=== PATIENT | male | born 1995 | race Caucasian/White ===

== ENCOUNTER 2017-09-03 13:33 | Emergency (ER) | payer OTHER ==
[2017-09-03] MEDS ORDERED: SODIUM CHLORIDE 0.9% 1,000 ML IV STA ×2 (14:18→14:23)
[2017-09-03] MEDS ORDERED: LORazepam 2 MG/ML INJ IV STA (14:33)
--- NOTE | 2017-09-03 14:39 | ED ---
Arrhythmia/Palpitations HPI - General Chief Complaint: Arrhythmia/Palpitations Stated Complaint: Chest Pain/Diff Breathing Time Seen by Provider: 09/03/17 14:04 Source: patient Mode of arrival: wheelchair Limitations: no limitations - History of Present Illness Initial Comments: Patient with history of hypothyroidism on levothyroxine, presents with palpitations. States symptoms started while at work today, states he was on his back in a closed tight space spraying for mold when his heart began racing. Symptoms lasted for a few minutes. Patient states the resolved, however they returned while driving to the hospital, but then resolved upon arrival to the hospital. Patient states associated with shortness of breath, "tightness" in his chest. Patient states he had a history of multiple syncopal episodes, the last one occurring 4 years ago, states she was seen by a shear setter and had a thorough workup. States he had a 17-year-old cousin who of a "enlarged heart", but he states "the shear setter worked me up for that". Patient denies recent illness, fevers, chills, nausea, vomiting, changes in appetite, changes in medication, dehydration, syncope, lightheadedness, changes in urination, drug use, recent alcohol use, stimulant use, anxiety, stress. Patient's father bedside assist with history. MD Complaint: "heart racing", palpitations - Related Data Home Medications Medication Instructions Recorded Confirmed Levothyroxine Sodium [Synthroid] 50 mcg PO QAM 07/19/14 09/03/17 Allergies Allergy/AdvReac Type Severity Reaction Status Date / Time Sulfa (Sulfonamide Allergy Rash/Hives Verified 09/03/17 14:06 Antibiotics) Review of Systems ROS Statement: Those systems with pertinent positive or pertinent negative responses have been documented in the HPI. ROS Other: All systems not noted in ROS Statement are negative. Constitutional: Denies: fever, chills, weakness Eyes: Denies: vision change ENT: Denies: throat pain, congestion Respiratory: Reports: dyspnea. Denies: cough, wheezes, stridor Cardiovascular: Reports: palpitations. Denies: chest pain, dyspnea on exertion , orthopnea, edema, syncope Gastrointestinal: Denies: abdominal pain, nausea, vomiting, diarrhea, constipation Genitourinary: Denies: urgency, dysuria, frequency, hematuria Musculoskeletal: Denies: back pain Skin: Denies: rash Neurological: Denies: headache, weakness, numbness, paresthesias, confusion Psychiatric: Denies: anxiety Past Medical History Past Medical History: Syncope, Thyroid Disorder Additional Past Medical History / Comment(s): SEE KRISHEN'S H&P, ACNE History of Any Multi-Drug Resistant Organisms: None Reported Past Surgical History: No Surgical Hx Reported Additional Past Anesthesia/Blood Transfusion Reaction / Comment(s): NEVER HAS HAD ANESTHESIA Past Psychological History: No Psychological Hx Reported Smoking Status: Never smoker Past Alcohol Use History: Rare Past Drug Use History: None Reported General Exam - General Exam Comments Initial Comments: Patient sitting up on bed. Appears mildly anxious. Conversing normally. Pleasant. Well-appearing. Limitations: no limitations General appearance: alert, anxious Head exam: Present: atraumatic, normocephalic Eye exam: Present: normal appearance, PERRL, EOMI ENT exam: Present: mucous membranes moist, normal external ear exam Neck exam: Present: normal inspection. Absent: thyromegaly Respiratory exam: Present: normal lung sounds bilaterally. Absent: respiratory distress, wheezes, rales, rhonchi, stridor, accessory muscle use Cardiovascular Exam: Present: normal rhythm, tachycardia. Absent: systolic murmur, diastolic murmur GI/Abdominal exam: Present: soft. Absent: distended, tenderness, guarding, rebound, rigid Extremities exam: Present: normal inspection Neurological exam: Present: alert, oriented X3. Absent: altered Psychiatric exam: Present: anxious Skin exam: Present: warm, dry, intact, normal color. Absent: rash Course Vital Signs 09/03/17 13:47 Temperature 97.2 F L Pulse Rate 125 H Respiratory 20 Rate Blood Pressure 138/69 O2 Sat by Pulse 100 Oximetry Medical Decision Making - Medical Decision Making HR 125. Patient appears mildly anxious. Will give IV fluids and 0.5 mg of Ativan. EKG: HR 103, Sinus rhythm, signs of LVH. Electrolytes normal. D-dimer negative. Troponin negative. UDS and urinalysis negative. TSH within normal limits. Patient reassessed, states he is feeling much better, "I feel much more relaxed ". Heart rate improved to 94. Patient father updated without results. They feel comfortable going home at this time. Discussed with patient father given signs of LVH on EKG, and family history of early cardiac , patient needs to follow-up with his shear setter Dr. Hanson this week. Patient is to avoid stimulant use, stressors, strenuous physical exertion until cleared by cardiology. The patient father understand and agree. AND answered. We'll discharge home. Patient advised to return to ED immediately if he experiences any lightheadedness, syncope, chest pains or any other new or worsening symptoms. - Lab Data Result diagrams: 09/03/17 14:39 09/03/17 14:39 Lab Results 09/03/17 09/03/17 09/03/17 Range/Units 14:39 14:39 14:39 WBC 5.1 (3.8-10.6) k/uL RBC 4.76 (4.30-5.90) m/uL Hgb 15.3 (13.0-17.5) gm/dL Hct 46.6 (39.0-53.0) % MCV 98.0 (80.0-100.0) fL MCH 32.1 (25.0-35.0) pg MCHC 32.7 (31.0-37.0) g/dL RDW 13.0 (11.5-15.5) % Plt Count 243 (150-450) k/uL Neutrophils % 66 % Lymphocytes % 21 % Monocytes % 10 % Eosinophils % 1 % Basophils % 0 % Neutrophils # 3.3 (1.3-7.7) k/uL Lymphocytes # 1.1 (1.0-4.8) k/uL Monocytes # 0.5 (0-1.0) k/uL Eosinophils # 0.0 (0-0.7) k/uL Basophils # 0.0 (0-0.2) k/uL D-Dimer (<0.60) mg/L FEU Sodium (137-145) mmol/L Potassium (3.5-5.1) mmol/L Chloride (98-107) mmol/L Carbon Dioxide (22-30) mmol/L Anion Gap mmol/L BUN (9-20) mg/dL Creatinine (0.66-1.25) mg/dL Est GFR (MDRD) Af Amer (>60 ml/min/1.73 sqM) Est GFR (MDRD) Non-Af (>60 ml/min/1.73 sqM) Glucose (74-99) mg/dL Calcium (8.4-10.2) mg/dL Magnesium 1.9 (1.6-2.3) mg/dL Troponin I <0.012 (0.000-0.034) ng/mL TSH 1.370 (0.465-4.680) mIU/L Urine Color Urine Appearance (Clear) Urine pH (5.0-8.0) Ur Specific [place] (1.001-1.035) Urine Protein (Negative) Urine Glucose (UA) (Negative) Urine Ketones (Negative) Urine Blood (Negative) Urine Nitrite (Negative) Urine Bilirubin (Negative) Urine Urobilinogen (<2.0) mg/dL Ur Leukocyte Esterase (Negative) Urine Opiates Screen (NotDetected) Ur Oxycodone Screen (NotDetected) Urine Methadone Screen (NotDetected) Ur Propoxyphene Screen (NotDetected) Ur Barbiturates Screen (NotDetected) U Tricyclic Antidepress (NotDetected) Ur Phencyclidine Scrn (NotDetected) Ur Amphetamines Screen (NotDetected) U Methamphetamines Scrn (NotDetected) U Benzodiazepines Scrn (NotDetected) Urine Cocaine Screen (NotDetected) U Marijuana (THC) Screen (NotDetected) 09/03/17 09/03/17 09/03/17 Range/Units 14:39 14:39 14:39 WBC (3.8-10.6) k/uL RBC (4.30-5.90) m/uL Hgb (13.0-17.5) gm/dL Hct (39.0-53.0) % MCV (80.0-100.0) fL MCH (25.0-35.0) pg MCHC (31.0-37.0) g/dL RDW (11.5-15.5) % Plt Count (150-450) k/uL Neutrophils % % Lymphocytes % % Monocytes % % Eosinophils % % Basophils % % Neutrophils # (1.3-7.7) k/uL Lymphocytes # (1.0-4.8) k/uL Monocytes # (0-1.0) k/uL Eosinophils # (0-0.7) k/uL Basophils # (0-0.2) k/uL D-Dimer <0.17 (<0.60) mg/L FEU Sodium 136 L (137-145) mmol/L Potassium 3.8 (3.5-5.1) mmol/L Chloride 102 (98-107) mmol/L Carbon Dioxide 23 (22-30) mmol/L Anion Gap 11 mmol/L BUN 14 (9-20) mg/dL Creatinine 0.92 (0.66-1.25) mg/dL Est GFR (MDRD) Af Amer >60 (>60 ml/min/1.73 sqM) Est GFR (MDRD) Non-Af >60 (>60 ml/min/1.73 sqM) Glucose 121 H (74-99) mg/dL Calcium 9.5 (8.4-10.2) mg/dL Magnesium (1.6-2.3) mg/dL Troponin I (0.000-0.034) ng/mL TSH (0.465-4.680) mIU/L Urine Color Colorless Urine Appearance Clear (Clear) Urine pH 7.5 (5.0-8.0) Ur Specific [place] 1.004 (1.001-1.035) Urine Protein Negative (Negative) Urine Glucose (UA) Negative (Negative) Urine Ketones Negative (Negative) Urine Blood Negative (Negative) Urine Nitrite Negative (Negative) Urine Bilirubin Negative (Negative) Urine Urobilinogen <2.0 (<2.0) mg/dL Ur Leukocyte Esterase Negative (Negative) Urine Opiates Screen Not Detected (NotDetected) Ur Oxycodone Screen Not Detected (NotDetected) Urine Methadone Screen Not Detected (NotDetected) Ur Propoxyphene Screen Not Detected (NotDetected) Ur Barbiturates Screen Not Detected (NotDetected) U Tricyclic Antidepress Not Detected (NotDetected) Ur Phencyclidine Scrn Not Detected (NotDetected) Ur Amphetamines Screen Not Detected (NotDetected) U Methamphetamines Scrn Not Detected (NotDetected) U Benzodiazepines Scrn Not Detected (NotDetected) Urine Cocaine Screen Not Detected (NotDetected) U Marijuana (THC) Screen Not Detected (NotDetected) Disposition Clinical Impression: Palpitations Disposition: HOME SELF-CARE Condition: Good Instructions: Palpitations (ED) Additional Instructions: Make appointment with your shear setter Dr. Hanson this week. Avoid stress, stimulants, strenuous physical exertion until cleared by shear setter. Referrals: Luis Wilcox MD [Primary Care Provider] - 1-2 days
[2017-09-03 14:54] LABS: Appearance,Urine Clear (Clear); Bilirubin,Urine Negative (Negative); Glucose,Urine (UA) Negative (Negative); Ketones,Urine Negative (Negative); Leukocyte Esterase,Urine Negative (Negative); Nitrite,Urine Negative (Negative); PH, Urine 7.5 (5.0-8.0); Protein,Urine Negative (Negative); Specific Gravity,Urine 1.004 (1.001-1.035); UA Billing (MACRO vs. MICRO) CHEM; Urobilinogen,Urine <2.0 mg/dL (<2.0)
[2017-09-03 14:56] LABS: Basophils % (A) 0 %; CH 32.6; CHCM 33.4; Eosinophils % (A) 1 %; HCT 46.6 % (39.0-53.0); HDW 2.31; HGB 15.3 gm/dL (13.0-17.5); Luc # (Auto) 0.12; Luc % (Auto) 2; Lymphocytes # (A) 1.1 k/uL (1.0-4.8); Lymphocytes % (A) 21 %; MCH 32.1 pg (25.0-35.0); MCHC 32.7 g/dL (31.0-37.0); Mean Platelet Volume 6.9; Monocytes # (A) 0.5 k/uL (0-1.0); Monocytes % (A) 10 %; Neutrophils # (A) 3.3 k/uL (1.3-7.7); Neutrophils % (A) 66 %; RBC 4.76 m/uL (4.30-5.90); WBC 5.1 k/uL (3.8-10.6); WBC (Perox) 5.03
[2017-09-03 15:02] LABS: Magnesium 1.9 mg/dL (1.6-2.3)
--- NOTE | 2017-09-03 15:16 | XR ---
EXAMINATION TYPE: XR chest 2V DATE OF EXAM: 09/03/2017 COMPARISON: Chest x-ray July 19, 2014 HISTORY: Chest pain and shortness of breath TECHNIQUE: Frontal and lateral views of the chest are obtained. FINDINGS: There is no focal air space opacity, pleural effusion, or pneumothorax seen. The cardiac silhouette size is within normal limits. The osseous structures are intact. IMPRESSION: No acute cardiopulmonary process. No significant change from prior.
[2017-09-03 15:47] LABS: Anion Gap 11 mmol/L; Blood Urea Nitrogen 14 mg/dL (9-20); Calcium 9.5 mg/dL (8.4-10.2); Carbon Dioxide 23 mmol/L (22-30); Chloride 102 mmol/L (98-107); Glucose 121 mg/dL (74-99); Non-African American GFR(MDRD) >60 (>60 ml/min/1.73 sqM); Potassium 3.8 mmol/L (3.5-5.1); Sodium 136 mmol/L (137-145)
[2017-09-03 16:33] VITALS: BP 129/81; PULSE 104; RESP 18; TEMP 98.4
== END 2017-09-03 16:33 | disposition home or self-care (01) ==
LOC: EC 13:33
DX: F41.9 Anxiety disorder, unspecified (principal); R00.0 Tachycardia, unspecified; E03.9 Hypothyroidism, unspecified; Z79.899 Other long term (current) drug therapy; Z88.2 Allergy status to sulfonamides; Z82.41 Family history of sudden cardiac death
CPT/HCPCS: 99285 ×2; 96374 ×2; 96361 ×3; 36415; 93005; 85379; 80048; 83735; 84443; 84484; 85025; 81003; 80306; 71020; J2060

== ENCOUNTER 2018-05-08 17:15 | Emergency (ER) | payer OTHER ==
[2018-05-08 17:34] VITALS: RESP 18
--- NOTE | 2018-05-08 18:09 | ED ---
General Adult HPI - General Chief complaint: Head Injury Stated complaint: [facility]-Head Lac Time Seen by Provider: 05/08/18 17:54 Source: patient, RN notes reviewed Mode of arrival: ambulatory Limitations: no limitations - History of Present Illness Initial comments: 22-year-old male says to the emergency department for chief complaint of head trauma about one hour ago. Patient states he was cleaning an area rug at work. The rug was hanging from a metal object. The metal object fell on his head. Patient states the metal object is quite heavy. Patient did not lose consciousness. Patient states he has a big bump over the top of his head. Patient also has a laceration over the left ear. Patient denies nausea or vomiting or confusion. He states he "feels a little funny." Patient denies any neck pain. Patient has no other complaints at this time including shortness of breath, chest pain, abdominal pain, nausea or vomiting, headache, or visual changes. - Related Data Home Medications Medication Instructions Recorded Confirmed Levothyroxine Sodium [Synthroid] 50 mcg PO QAM 07/19/14 09/03/17 Allergies Allergy/AdvReac Type Severity Reaction Status Date / Time Sulfa (Sulfonamide Allergy Rash/Hives Verified 05/08/18 17:33 Antibiotics) Review of Systems ROS Statement: Those systems with pertinent positive or pertinent negative responses have been documented in the HPI. ROS Other: All systems not noted in ROS Statement are negative. Past Medical History Past Medical History: Syncope, Thyroid Disorder Additional Past Medical History / Comment(s): SEE SALLY'S H&P, ACNE History of Any Multi-Drug Resistant Organisms: None Reported Past Surgical History: No Surgical Hx Reported Additional Past Anesthesia/Blood Transfusion Reaction / Comment(s): NEVER HAS HAD ANESTHESIA Past Psychological History: No Psychological Hx Reported Smoking Status: Never smoker Past Alcohol Use History: Rare Past Drug Use History: None Reported General Exam Limitations: no limitations General appearance: alert, in no apparent distress Head exam: Present: normocephalic, other (There is a 4 cm x 4 cm hematoma over the top of the head. There is also a 4 cm laceration just superior to the left ear. Very mild auricular hematoma of the left ear as well.) Eye exam: Present: normal appearance, PERRL, EOMI. Absent: scleral icterus, conjunctival injection, nystagmus, periorbital swelling Pupils: Present: normal accommodation ENT exam: Present: normal exam, normal oropharynx, mucous membranes moist, TM's normal bilaterally. Absent: normal external ear exam (Patient has a very mild left auricular hematoma) Neck exam: Present: normal inspection, full ROM. Absent: tenderness, meningismus, lymphadenopathy Respiratory exam: Present: normal lung sounds bilaterally. Absent: respiratory distress, wheezes, rales, rhonchi, stridor Cardiovascular Exam: Present: regular rate, normal rhythm, normal heart sounds. Absent: systolic murmur, diastolic murmur, rubs, gallop, clicks Course Vital Signs 05/08/18 05/08/18 17:31 19:35 Temperature 98.1 F 98.6 F Pulse Rate 76 90 Respiratory 18 18 Rate Blood Pressure 124/76 145/86 O2 Sat by Pulse 99 98 Oximetry Procedures - Procedures Initial comment: Body area: superior to left ear Laceration length: 4 cm Foreign bodies: no foreign bodies Tendon involvement: none Nerve involvement: none Vascular damage: none Anesthesia: local infiltration Local anesthetic: 1% lidocaine Anesthetic total: 3 ml Preparation: Patient was prepped and draped in the usual sterile fashion. Irrigation solution: sterile water Irrigation method: jet lavage and syringe Skin closure: [place] Number of alo: 8 Technique: simple Approximation: close Approximation difficulty: simple Dressing: antibiotic ointment and gauze Patient tolerance: Patient tolerated the procedure well with no immediate complications. Medical Decision Making - Medical Decision Making 22-year-old male presents to the emergency department for a chief complaint of head trauma one hour ago. Patient was at work cleaning a area rug which was hanging from a heavy metal object. The object fell on his head. No loss of consciousness, confusion, nausea or vomiting. Patient did feel "a little funny. " On exam no focal neuro deficits. Patient does have a 4 cm laceration superior to the left ear as well as a 4 cm x 4 cm hematoma on the top of the head. Mild auricular hematoma of the left ear. I discussed with the patient the risks versus the benefits of CAT scan and patient agrees to have the CAT scan at this time. Computed tomography scan shows left parietal scalp soft tissue swelling. No mass effect or midline shift. No sign of intracranial hemorrhage. No intracranial abnormality. Negative computed tomography scan of the cervical spine. Patient was stapled with 8 alo above the left ear after wound was cleaned thoroughly. Auricular hematoma was also drained with an 18-gauge and pressure dressing was applied. Patient will leave this on for the rest of the night. He will monitor himself for any worsening symptoms such as severe headache, confusion, vomiting and return if these occur. He will take Tylenol for pain. He will follow up with primary care in 1-2 days. He is aware he needs to take it easy for the next few days and will have tomorrow off work. Disposition Clinical Impression: Closed head injury Disposition: HOME SELF-CARE Condition: Good Instructions: Concussion (ED), Head Injury (ED), Staple Care (ED) Additional Instructions: Please take Tylenol for pain. Please monitor for worsening symptoms such as severe headache, vomiting, confusion and return if these occur. Also monitor for any signs of infection around the staple area such as spreading redness drainage or fever. You may remove the pressure dressing later tonight or tomorrow morning. Follow-up with primary care in 1-2 days. Return to the emergency department in 5-7 days to have alo removed. Is patient prescribed a controlled substance at d/c from ED?: No Referrals: Demetris Martinez MD [STAFF PHYSICIAN] - 1-2 days Time of Disposition: 19:34
--- NOTE | 2018-05-08 18:47 | CT ---
EXAMINATION TYPE: CT brain reina ortega DATE OF EXAM: 05/08/2018 COMPARISON: NONE HISTORY: Head pain after injury, laceration to temporal area. CT DLP: 1144.7 mGycm Automated exposure control for dose reduction was used. TECHNIQUE: CT scan of the head and cervical spine are performed without contrast. FINDINGS: The ventricles and sulci appear normal. There is no mass effect nor midline shift. There is no sign of intracranial hemorrhage. There is mild scalp soft tissue swelling in the left parietal region. The calvarium appears intact. Cervical vertebra have normal spacing and alignment. Posterior elements are intact. Facet joints appe ar normal. The skull base is intact. I see no bony destructive process. IMPRESSION: Left parietal scalp soft tissue swelling. No intracranial abnormality. Negative CT scan of the cervical spine.
[2018-05-08 19:36] VITALS: BP 145/86; PULSE 90; TEMP 98.6
== END 2018-05-08 19:40 | disposition home or self-care (01) ==
LOC: EC 17:15
DX: S01.312A Laceration without foreign body of left ear, initial encounter (principal); S00.83XA Contusion of other part of head, initial encounter; S00.432A Contusion of left ear, initial encounter; R40.2412 Glasgow coma scale score 13-15, at arrival to emergency department; E07.9 Disorder of thyroid, unspecified; Z79.899 Other long term (current) drug therapy; Z88.2 Allergy status to sulfonamides; W20.8XXA Other cause of strike by thrown, projected or falling object, initial encounter; Y93.89 Activity, other specified; Y92.69 Other specified industrial and construction area as the place of occurrence of the external cause; Y99.0 Civilian activity done for income or pay
CPT/HCPCS: 10140; 12013; 70450; 72125; 99283

== ENCOUNTER → 2019-06-18 | Outpatient (CLI) | payer OTHER ==
--- NOTE | 2019-06-19 07:19 | US ---
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 Hypothyroidism GLAND SIZE: Right Lobe: 5.8 x 1.7 x 1.8 cm Overall Parenchyma: heterogenous Left Lobe: 5.5 x 1.8 x 1.6 cm Overall Parenchyma: heterogeneous Isthmus Thickness: 0.4 cm NODULES RIGHT: # of nodules measured on right: 0 LEFT: # of nodules measured on left: 0 ISTHMUS: # of nodules measured in the isthmus: 0 Bilateral neck scanned, no evidence of lymphadenopathy. Thyroid gland is enlarged, diffusely heterogenous and hypervascular. IMPRESSION: Enlarged, heterogenous, and hypervascular thyroid gland likely on the basis of thyroiditis.
== END | disposition home or self-care (01) ==
LOC: RADUSMAIN 15:59
PROVIDERS: ATTEND Family Medicine
DX: E07.9 Disorder of thyroid, unspecified (principal)
CPT/HCPCS: 76536

== ENCOUNTER → 2020-11-11 | Outpatient (CLI) | payer SELFPAY | END | disposition home or self-care (01) | LOC: LABWHC1 10:18 | PROVIDERS: ATTEND Emergency Medicine | DX: Z20.828 Contact with and (suspected) exposure to other viral communicable diseases (principal) | CPT/HCPCS: U0003; C9803 ==